=== PATIENT | female | born 1970 | race African-American/Black ===

== ENCOUNTER 2023-12-26 09:31 | Day surgery (SDC) | payer BC ==
[2023-12-21 13:24] VITALS: BMI 40.8
[2023-12-26] MEDS ORDERED: Midazolam HCl 2 mg/2 ml Vial ONE (11:37)
[2023-12-26] MEDS ORDERED: PROPOFOL 60 ML ONE (11:38)
[2023-12-26] MEDS ORDERED: PROPOFOL 80 ML ONE (12:20)
[2023-12-26] MEDS ORDERED: Glycopyrrolate 0.2 MG/ML 5 ML SYRINGE ONE (12:47)
== END 2023-12-26 13:25 | disposition home or self-care (01) ==
LOC: CSHSDC 09:31
PROVIDERS: ATTEND Surgery
PROC: 0DJD8ZZ Inspection of Lower Intestinal Tract, Via Natural or Artificial Opening Endoscopic (ICD-10-PCS; principal; 2023-12-26)
DX: Z12.11 Encounter for screening for malignant neoplasm of colon (principal); K57.30 Diverticulosis of large intestine without perforation or abscess without bleeding; E66.01 Morbid (severe) obesity due to excess calories; I10 Essential (primary) hypertension; E78.00 Pure hypercholesterolemia, unspecified; Z96.659 Presence of unspecified artificial knee joint; Z90.710 Acquired absence of both cervix and uterus; Z68.41 Body mass index [BMI] 40.0-44.9, adult
CPT/HCPCS: J2250; J2704

== ENCOUNTER 2025-02-11 08:02 | Outpatient (CLI) | payer BC | END 2025-02-11 08:03 | disposition home or self-care (01) | LOC: CSHMAMMO 08:02 | PROVIDERS: ATTEND Emergency Medicine | DX: N63.0 Unspecified lump in unspecified breast (principal) | CPT/HCPCS: 77066; G0279 ==